=== PATIENT | female | born 1995 | race Caucasian/White ===

== ENCOUNTER → 2017-10-03 | Outpatient (CLI) | payer BC, OTHER ==
[~2017-10-03] MED LIST: ONDA8 PO; PROM25 PO
[2017-10-04 09:42] LABS: Source Cervix
== END ==
LOC: LAB 17:03
PROVIDERS: Registered Nurse Community Health
DX: Z12.4 Encounter for screening for malignant neoplasm of cervix (principal)
CPT/HCPCS: G0123